=== PATIENT | female | born 1985 | race Caucasian/White ===

== ENCOUNTER 2017-01-27 12:34 | Emergency (ER) | payer MEDICAID ==
[~2017-01-27] VITALS: Ht 170.2 cm; Wt 103.0 kg
[2017-01-27 12:37] VITALS: Ht 170.2 cm; Wt 103.0 kg
[2017-01-27] MEDS ORDERED: AMO500 PO ×2 (14:02→14:05)
[2017-01-27] MEDS ORDERED: HYDR-906 PO (14:05)
[2017-01-27] MEDS ORDERED: NAPR-260 PO (14:05)
--- NOTE | 2017-01-28 18:56 | ERD ---
ER Documentation Chief Complaint Date/Time DATE: 01/28/17 TIME: 18:53 Chief Complaint r ear pain and r dental pain HPI This patient is a 31-year-old female presenting to the emergency department with complaints of right-sided jaw and right ear pain ongoing intermittently for the past month. The patient saw her dentist approximately 2 weeks ago and has been having pain since the procedure was done. Her pain is worsening. Symptoms are constant. She denies sore throat or pain on swallowing. She denies fevers, chills, nausea, vomiting, diarrhea, or other symptoms at this time. ROS All systems reviewed and are negative except as per history of present illness. Medications Home Meds Active Scripts Amoxicillin* (Amoxicillin*) 500 Mg Cap, 500 MG PO TID for 7 Days, CAP Prov:NATACHA PENALOZA PA-C 01/27/17 Naproxen* (Naprosyn*) 500 Mg Tablet, 500 MG PO BID Y for PAIN AND/OR INFLAMMATION, #30 TAB Prov:NATACHA PENALOZA PA-C 01/27/17 Hydrocodone/Acetaminophen ([place] 5-325 Tablet) 1 Each Tablet, 1 TAB PO Q6H Y for PAIN, #7 TAB Prov:NATACHA PENALOZA PA-C 01/27/17 Amoxicillin* (Amoxicillin*) 500 Mg Cap, 500 MG PO TID for 7 Days, #21 CAP Prov:NATACHA PENALOZA PA-C 01/27/17 Reported Medications [None] No Conflict Check 03/03/10 Allergies Allergies: Coded Allergies: No Known Drug Allergies (Verified Allergy, Mild, 04/04/14) PMhx/Soc History of Surgery: No Anesthesia Reaction: No Hx Neurological Disorder: No Hx Respiratory Disorders: No Hx Cardiac Disorders: No Hx Psychiatric Problems: No Hx Miscellaneous Medical Probl: No Hx Alcohol Use: No Hx Substance Use: No Hx Tobacco Use: No Physical Exam Vitals Vital Signs Date Time Temp Pulse Resp B/P Pulse Ox O2 Delivery O2 Flow Rate FiO2 01/27/17 12:37 98.0 86 18 127/74 98 Physical Exam Const: Nontoxic, well-appearing female in no acute distress. Head: Atraumatic Eyes: Normal Conjunctiva ENT: Normal External Ears, Nose and Mouth. The patient has some back right molar is missing on the lower side. She has some tenderness palpation of the right lower jaw. There is no erythema or edema to the face. Neck: Full range of motion..~ No meningismus. Resp: Clear to auscultation bilaterally Cardio: Regular rate and rhythm, no murmurs Abd: Soft, non tender, non distended. Normal bowel sounds Skin: No petechiae or rashes Back: No midline or flank tenderness Ext: No cyanosis, or edema Neur: Awake and alert Psych: Normal Mood and Affect Procedures/MDM 31-year-old female presenting to the emergency department for dental pain. On physical examination the patient's vitals are within normal limits. Examination of the mouth is concerning for positive early dental abscess. The patient will be treated as an outpatient with prescriptions for amoxicillin, naproxen, and 7 tablets of [place] in case severe pain occurs. Close follow-up with the primary care physician and the dentist advised. I low suspicion for cellulitis, deep tissue infection of the face, peritonsillar abscess, or other emergent conditions. Strict ER return precautions discussed. The patient agreed with the discharge plan and diagnosis. All questions and concerns addressed. Departure Diagnosis: Primary Impression: Pain, dental Condition: Fair Patient Instructions: Dental Pain Referrals: [facility] YOU HAVE RECEIVED A MEDICAL SCREENING EXAM AND THE RESULTS INDICATE THAT YOU DO NOT HAVE A CONDITION THAT REQUIRES URGENT TREATMENT IN THE EMERGENCY DEPARTMENT. FURTHER EVALUATION AND TREATMENT OF YOUR CONDITION CAN WAIT UNTIL YOU ARE SEEN IN YOUR DOCTORS OFFICE WITHIN THE NEXT 1-2 DAYS. IT IS YOUR RESPONSIBILITY TO MAKE AN APPOINTMENT FOR FOLOW-UP CARE. IF YOU HAVE A PRIMARY DOCTOR --you should call your primary doctor and schedule an appointment IF YOU DO NOT HAVE A PRIMARY DOCTOR YOU CAN CALL OUR PHYSICIAN REFERRAL HOTLINE AT IF YOU CAN NOT AFFORD TO SEE A PHYSICIAN YOU CAN CHOSE FROM THE FOLLOWING [facility] [address] [facility] [address] [facility] [address] [facility] [address] [facility]. [facility] [address]. [facility] [address] Additional Instructions: Follow up with your PCP within the next 1-3 days for a repeat evaluation and a possible referral to a specialist, if required. Return the the emergency department immediately if symptoms worsen or change. If you have any questions regarding medications, ask your pharmacist or us before you leave. If any adverse reactions, occur while taking your medications, discontinue the treatment and return to the emergency department immediately. If any new or worsening symptoms, uncontrolled fevers, or other unexplained symptoms occur, return to the emergency department immediately. Take your medications as directed, and complete the entire course of treatment. NATACHA PENALOZA PA-C Jan 28, 2017 18:56
== END 2017-01-27 14:38 | disposition home or self-care (01) ==
LOC: FTE 12:34
DX: K08.89 Other specified disorders of teeth and supporting structures (principal)
CPT/HCPCS: 99284